=== PATIENT | male | born 1990 | race Caucasian/White ===

== ENCOUNTER 2016-11-11 21:20 | Emergency (ER) | payer SELFPAY ==
[~2016-11-11 21:20] MED LIST: TRAM50 PO
[2016-11-11 21:26] VITALS: BP 150/89; PULSE 68; RESP 20; TEMP 98.2; O2SAT 100
--- NOTE | 2016-11-11 22:14 | PD ---
HPI Chief Complaint: Musculoskeletal Complaint Time Seen by Provider: 21:55 Travel History International Travel<30 days: No Contact w/Intl Traveler<30days: No Traveled to known affect area: No History of Present Illness HPI 26-year-old male presents to the emergency room for evaluation of right elbow pain for the past 3.5 weeks. Patient was working on stilts when he slipped and fell to the right striking his right elbow on the concrete. He had immediate pain. Went to [place] . X-rays which showed a compression fracture of the forearm in a radial head fracture. Patient was put in a splint and told to follow up with orthopedic surgeon. He has not been able to follow because he does not appear insurance. States he has been wearing his splint except for the occasional shower. He has been taking Tylenol and Motrin for pain. Reports persistent pain but that is no worse than normal. Denies paresthesias. PFSH Past Medical History Autoimmune Disease: No Blood Disorders: No Anxiety: No Depression: No Heart Rhythm Problems: Yes (COMMOTIO CORDIS: JAN 2010 DURING A FOOTBALL PRACTICE) Cardiovascular Problems: No Genitourinary: No Musculoskeletal: No Neurologic: No Psychiatric: No Respiratory: No Migraines: Yes Sickle Cell Disease: No Tetanus Vaccination: > 5 Years Influenza Vaccination: No Past Surgical History Surgical History: No Previous Surgery Social History Alcohol Use: Yes (Occ.) Tobacco Use: Yes (1 PPD) Substance Use: Yes (Marijuana occ.) Allergies-Medications (Allergen,Severity, Reaction): Coded Allergies: No Known Allergies (Verified , 11/11/16) Reported Meds & Prescriptions Reported Meds & Active Scripts Active No Active Prescriptions or Reported Medications Review of Systems Except as stated in HPI: all other systems reviewed are Neg Physical Exam Narrative GENERAL: Well-nourished, well-developed patient in no acute distress. Afebrile. Ambulatory. SKIN: Focused skin assessment warm/dry. HEAD: Normocephalic. EYES: No scleral icterus. No injection or drainage. NECK: Supple, trachea midline. No JVD or lymphadenopathy. CARDIOVASCULAR: Regular rate and rhythm without murmurs, gallops, or rubs. RESPIRATORY: Breath sounds equal bilaterally. No accessory muscle use. MUSCULOSKELETAL: No cyanosis. 2+ radial pulse. Radial, ulnar, and median nerves intact. Full motion of the wrist and hand. Patient came in the right arm to 170. Can flex to 90. Can supinate and pronate. Moderate edema of the right elbow. Data Data Last Documented VS Vital Signs Date Time Temp Pulse Resp B/P Pulse Ox O2 Delivery O2 Flow Rate FiO2 11/11/16 21:26 98.2 68 20 150/89 100 Orders Elbow, Complete (4 Vws) (11/11/16 ) [facility] Medical Decision Making Medical Screen Exam Complete: Yes Emergency Medical Condition: Yes Medical Record Reviewed: Yes Differential Diagnosis Fracture, contusion, abrasion, strain, sprain Narrative Course 26-year-old male presents to the emergency room for evaluation of subacute right elbow fracture. Patient fell 3.5 weeks ago and has been unable to follow- up. He presents today requesting follow-up in because he has decreased range of motion. Upper extremity is neurovascularly intact with 2+ radial pulse. Radial, ulnar, and median nerves intact. Patient can fully supinate and pronate the elbow and has full flexion but can only flex 170. Mild edema. X- ray shows no acute bony abnormality. Patient likely has decreased range of motion because it has been splinted for the past 3.5 weeks. He was reassured and given flier for the [facility]. Patient told to follow-up or return for worsening symptoms. He understands and agrees to plan. Diagnosis Primary Impression: Elbow fracture, right Qualified Code: S42.401A - Elbow fracture, right, closed, initial encounter Referrals: Orthopaedic Surgeon Primary Care Physician Patient Instructions: Elbow Fracture in Adults (ED), General Instructions Additional Instructions: Rest and drink plenty of fluids. Keep splint on. Take ibuprofen with food as directed, as needed for pain. Apply ice to the affected area for 20 minutes at a time, as needed for pain and swelling. Follow-up with orthopedic surgeon. Return to the emergency room for worsening symptoms. Scripts No Active Prescriptions or Reported Meds Disposition: 01 DISCHARGE HOME Condition: Stable Bridget Garcia Nov 11, 2016 22:13
--- NOTE | 2016-11-11 22:35 | RADRPT ---
EXAM DATE/TIME: 11/11/2016 22:17 [facility] COMPARISON: No previous studies available for comparison. INDICATIONS : Right elbow pain and swelling for 3 weeks. Patient fell 3 weeks ago; [facility] MEDICAL HISTORY : None. SURGICAL HISTORY : None. ENCOUNTER: Initial ACUITY: 3 weeks PAIN SCORE: 5/10 LOCATION: Right posterior elbow. FINDINGS: Multiple view examination of the right elbow demonstrates no soft tissue swelling or fracture. There is elevation of the anterior fat pad. The osseous structures are in normal alignment. Bony mineraliz ation is normal. CONCLUSION: 1. No fracture or dislocation observed. 2. Small joint effusion. Troy Alcaraz Jr., MD on November 11, 2016 at 22:32 Board Certified Radiologist. This report was verified electronically.
== END 2016-11-11 22:55 | disposition home or self-care (01) ==
LOC: PHEFT 21:20
DX: S42.401A Unspecified fracture of lower end of right humerus, initial encounter for closed fracture (principal); F17.210 Nicotine dependence, cigarettes, uncomplicated; F12.90 Cannabis use, unspecified, uncomplicated; W01.198A Fall on same level from slipping, tripping and stumbling with subsequent striking against other object, initial encounter
CPT/HCPCS: 73080; 99283